=== PATIENT | male | born 1945 | race Caucasian/White ===

== ENCOUNTER 2021-03-20 11:30 | Outpatient (CLI) | payer BC, MEDICARE ==
[2021-03-20] VITALS (8 sets, daily range): BP systolic 116–131; BP diastolic 62–71; PULSE 64–76; TEMP 98.4
[~2021-03-20] VITALS: Ht 175.3 cm; Wt 72.7 kg
[~2021-03-20 11:30] MED LIST: CEPHALEXIN500 M1 PO; FENTANYL 25 MCG TD; FLEXERIL 1010 MG/TAB PO; NORCO 325 MG-51 TAB PO; NORCO 325 MG-7.1 TAB PO; OXYCONTIN 10MG10 MG PO; OXYCONTIN 20MG20 MG PO
--- NOTE | 2021-03-20 13:33 | NUR ---
Pt escorted out to ED entrance. He tolerated infusion and 1 hr obs period without issue. INT DC'd with catheter intact.
== END 2021-03-20 14:30 | disposition home or self-care (01) ==
LOC: EUO 11:30
DX: U07.1 COVID-19 (principal)
CPT/HCPCS: M0245